=== PATIENT | female | born 2000 | race African-American/Black ===

== ENCOUNTER 2019-06-28 22:20 | Emergency (ER) | payer OTHER ==
[~2019-06-28] VITALS: Ht 167.6 cm; Wt 95.3 kg
[2019-06-28 22:24] VITALS: Ht 167.6 cm; Wt 95.3 kg
[2019-06-28 22:54] LABS: microscopic required? NO
[2019-06-28 23:15] LABS: AMPHETAMINE QUAL UR NONE DETECTED (See below)
[2019-06-28 23:16] LABS: UA SPECIFIC GRAVITY 1.015 (1.005-1.035); urine erythrocyte NEGATIVE (NEGATIVE)
[2019-06-28 23:19] LABS: BASOPHIL % 0.4 % (0-2); PLATELET COUNT 261 x10^3mcL (130-400)
[2019-06-28 23:20] LABS: RED CELL DISTRIBUTION WIDTH 15.5 % (11.5-14.5)
[2019-06-28 23:34] LABS: CALCIUM 9.2 mg/dL (8.5-10.1); CARBON DIOXIDE 26.9 mmol/L (21-32); CHLORIDE SERUM 104 mmol/L (98-107); CREATININE SERUM 0.9 mg/dL (0.6-1.0); GFR1 > 60 mL/min; GLUCOSE SERUM 81 mg/dL (74-106); POTASSIUM SERUM 3.8 mmol/L (3.5-5.1); SODIUM SERUM 141 mmol/L (136-145)
[2019-06-28 23:38] LABS: ALKALINE PHOSPHATASE 125 U/L (46-116); ALT/SGPT 32 U/L (14-59); AST/SGOT 18 U/L (15-37); BILIRUBIN TOTAL 0.2 mg/dL (0.20-1.00); LIPASE 129 IU/L (73-393); TOTAL PROTEIN, SERUM 7.4 g/dL (6.4-8.2)
[2019-06-28 23:39] LABS: ALBUMIN 3.2 g/dL (3.4-5.0)
[2019-06-29 00:19] VITALS: BP 103/60
== END 2019-06-29 00:19 | disposition home or self-care (01) ==
LOC: ED 22:20
PROVIDERS: Emergency Medicine
DX: R10.30 Lower abdominal pain, unspecified (principal); R55 Syncope and collapse; F17.210 Nicotine dependence, cigarettes, uncomplicated; Z98.890 Other specified postprocedural states
CPT/HCPCS: 99406; J1885; J2270; J2405; J7030

== ENCOUNTER 2019-06-29 21:34 | Emergency (ER) | payer OTHER ==
[~2019-06-29] VITALS: Ht 167.6 cm; Wt 99.3 kg
[2019-06-29 21:36] VITALS: Ht 167.6 cm; Wt 99.3 kg
[2019-06-29 22:51] VITALS: BP 104/55
== END 2019-06-29 22:51 | disposition home or self-care (01) ==
LOC: ED 21:34
DX: K59.00 Constipation, unspecified (principal); Z98.890 Other specified postprocedural states
CPT/HCPCS: J1885

== ENCOUNTER 2020-03-27 05:41 | Emergency (ER) | payer OTHER ==
[~2020-03-27] VITALS: Ht 162.6 cm; Wt 108.9 kg
[2020-03-27 05:51] VITALS: Ht 162.6 cm; Wt 108.9 kg
[2020-03-27 06:55] VITALS: BP 125/67
== END 2020-03-27 06:55 | disposition home or self-care (01) ==
LOC: ED 05:41
DX: M25.572 Pain in left ankle and joints of left foot (principal); R22.42 Localized swelling, mass and lump, left lower limb; Z98.890 Other specified postprocedural states
CPT/HCPCS: Q0092